=== PATIENT | male | born 1985 | race Hispanic/Latino ===

== ENCOUNTER 2019-11-20 10:06 | Emergency (ER) | payer OTHER, SELFPAY ==
--- NOTE | ~2019-11-20 | XR_ITS ---
EXAMINATION: XR elbow LT min 3V DATE: 11/20/2019 11:11 INDICATION: Left elbow pain TECHNIQUE: Anteroposterior, two oblique and lateral views of the left elbow were obtained. COMPARISON: None. FINDINGS: Alignment is normal. No fracture or joint effusion. Joint spaces are normal. Soft tissues a re unremarkable. IMPRESSION: 1. No acute osseous abnormality. Reviewed, dictated and finalized at location A.
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
--- NOTE | ~2019-11-20 | XR_ITS ---
EXAMINATION: XR forearm LT 2V INDICATION: Left forearm pain, initial encounter TECHNIQUE: Two views of the left forearm are obtained. COMPARISON: None available FINDINGS: There is an acute, traumatic, closed, transverse shaft fracture of the distal ulna. Soft ti ssue swelling surrounds the fracture. No additional acute osseous findings are evident. Bone alignmen t at the wrist and elbow appears normal. IMPRESSION: 1. Acute transverse fracture of the distal ulna. Reviewed, dictated and finalized at location A.
--- NOTE | ~2019-11-20 | XR_ITS ---
EXAMINATION: XR knee LT 3V DATE: 11/20/2019 11:11 INDICATION: Left knee pain TECHNIQUE: Three views of the left knee were obtained. COMPARISON: None. FINDINGS: Alignment is normal. No fracture or osteochondral lesion. Joint spaces are normal with no e rosions. No joint effusion/synovitis. Soft tissues are unremarkable. IMPRESSION: 1. No acute osseous abnormality. Reviewed, dictated and finalized at location A.
--- NOTE | ~2019-11-20 | XR_ITS ---
EXAMINATION: XR chest 2V DATE: 11/20/2019 11:11 INDICATION: Chest pain TECHNIQUE: AP and lateral views of the chest are obtained. COMPARISON: None available FINDINGS: The lateral view is obscured by the arms. The lungs are free of acute opacities. There is n o pleural effusion or pneumothorax. The cardiomediastinal silhouette is normal. The visualized bones and soft tissues are unremarkable. IMPRESSION: 1. No acute cardiopulmonary abnormality. Reviewed, dictated and finalized at location A.
[2019-11-20 09:59] VITALS: BP 149/87; PULSE 92; RESP 18; TEMP 36.8; O2SAT 96
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
== END 2019-11-20 12:18 | disposition home or self-care (01) ==
PROVIDERS: Emergency Provider Emergency Medicine
DX: R51 Headache (principal)
CPT/HCPCS: 29125; 70450; 71046; 73080; 73090; 73562; 99284; A4565; A9270

== ENCOUNTER 2020-11-24 12:59 | Emergency (ER) | payer OTHER, SELFPAY ==
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
[2020-11-24 13:00] VITALS: BP 158/113; PULSE 84; RESP 20; TEMP 36.4; O2SAT 98
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
[2020-11-24] MEDS: IBUPROFEN 400 MG TABLET 800 MG PO (14:00)
[2020-11-24] MEDS: HYDROcodone/acetaminophen (*CRX) 5-325 MG TABLET 1 TAB PO (14:01)
[2020-11-24 15:10] VITALS: BP 139/90; PULSE 70; RESP 16; O2SAT 100
--- NOTE | 2020-11-24 15:16 | PC.NURSE ---
made contact with fernanda degroot to transfer pt to [facility]. company declined. made contact with [facility]. [facility] accepted and is en route. company is aware that pt is going to [facility]
--- NOTE | 2020-11-24 15:54 | PC.NURSE ---
[facility] has arrived and crew is aware that pt is going to [facility]
== END 2020-11-24 16:00 | disposition short-term general hospital (02) ==
PROVIDERS: Emergency Provider Emergency Medicine
DX: F07.81 Postconcussional syndrome (principal); Z87.891 Personal history of nicotine dependence; V09.9XXA Pedestrian injured in unspecified transport accident, initial encounter
CPT/HCPCS: 70450; 72125; 99285; A9270; L0140

== ENCOUNTER 2020-12-31 20:14 | Emergency (ER) | payer SELFPAY ==
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
[2020-12-31 20:12] VITALS: BP 167/86; PULSE 103; RESP 18; TEMP 37.1; O2SAT 100
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
[2020-12-31] MEDS: TETANUS,DIPHTHERIA,AC PERTUSSIS ADULT (0.5 ML) BOOSTRIX IM (22:28)
[2020-12-31 22:51] VITALS: BP 155/98; PULSE 82; RESP 16; O2SAT 100
[2020-12-31] MEDS: HYDROcodone/acetaminophen (*CRX) 5-325 MG TABLET 1 TAB PO (23:35)
== END 2020-12-31 23:35 | disposition home or self-care (01) ==
PROVIDERS: Emergency Provider Emergency Medicine
DX: S01.01XA Laceration without foreign body of scalp, initial encounter (principal); Z87.891 Personal history of nicotine dependence; Z23 Encounter for immunization; Y08.09XA Assault by strike by other specified type of sport equipment, initial encounter
CPT/HCPCS: 12002; 70450; 72125; 90471; 90715; 99284; A9270